=== PATIENT | female | born 1995 ===

== ENCOUNTER 2017-07-05 03:45 | Inpatient (IN) ==
[2017-07-05 04:23] LABS: Bacteria,Urine Occasional /HPF (Few); Blood, Urine NEGATIVE (Negative); Glucose,Urine (UA) Negative (Negative); Ketones,Urine Negative (Negative); Mucus,Urine Few /LPF (Occasional); Nitrite,Urine Negative (Negative); Protein,Urine 30 MG/DL; RBC,Urine 1 /HPF (0-4); Squamous Epithelial Cell,Urine Occasional /HPF (0-10); Urine Color Yellow (Yellow); Urine Specific Gravity 1.025 (1.001-1.035); WBC,Urine 5 /HPF (0-6)
[2017-07-05 04:25] LABS: Apearance,Urine Clear (Clear); Bilirubin,Urine Moderate mg/dL (Negative)
[2017-07-05] MEDS ORDERED: ONDANSETRON 4 MG/2 ML VIAL IV PRN (07:27)
[2017-07-05] MEDS ORDERED: MEPERIDINE 50 MG/1 ML VIAL IV PRN (07:27)
[2017-07-05] MEDS ORDERED: LACTATED RINGERS 1,000 ML IV SCH (07:30)
[2017-07-05 07:44] LABS: Basophils % 0.1 % (0.0-0.8); Eosinophils % 0.4 % (0.00-10.9); Hemoglobin 12.8 GM/DL (12.0-16.0); Immature Granulocytes % 0.3 %; Immature Granulocytes Absolute 0.02 #; Lymphocytes # 1.6 10*3/uL (1.4-4.0); Lymphocytes % 21.4 % (21.3-54.2); Mean Corpuscular HGB Conc 34.6 GM/DL (32-36); Mean Corpuscular Hemoglobin 31 PG (27-34); Mean Corpuscular Volume 90.9 FL (87-102); Mean Platelet Volume 11.2 FL (9.6-12.0); Monocytes # 0.5 10*3/uL (0.11-0.8); Monocytes % 6.3 % (1.7-12.7); Neutrophils # 5.2 10*3/uL (1.4-7.4); Neutrophils % 71.5 % (38.7-73.9); Platelet Count 208 T/CUMM (130-400); Red Blood Count 4.07 MC/CUMM (3.8-5.5); Red Cell Distribution Width 12.8 % (9.3-17.3); White Blood Count 7.3 T/CUMM (4-12)
[2017-07-05 08:35] LABS: Albumin 2.7 G/DL (3.4-5.0); Bilirubin,Total 0.7 MG/DL (0.2-1.0); Calcium 8.2 MG/DL (8.5-10.1); Osmolality,Calculated 275.5 MOS/KG (273-304); Potassium 3.7 MMOL/L (3.5-5.1); Uric Acid 4.7 MG/DL (2.6-6.0)
[2017-07-05] MEDS ORDERED: OXYTOCIN/LR 20 UNIT/1,000 ML BAG IV ONE ×2 (09:20→15:00)
[2017-07-05] MEDS ORDERED: OXYTOCIN/LR 20 UNIT/1,000 ML BAG IV SCH (09:30)
--- NOTE | 2017-07-05 10:02 | OB/GYN History & Physical ---
History of Present Illness Chief complaint: Presented for complaints of uterine contractions and in active labor. History of present illness: Ms. Liang is a 21 year old female who is a 2 para 1 living 1. Her ABNER is 07/14/2017 for estimated gestational age of 38 weeks and 5 days. The patient presented to the labor department in active labor. Upon arrival she was examined by the nurse and her cervix was 5-6 cm dilated. In light of these findings patient is admitted for management of active labor. The risks and benefits were thoroughly discussed with this patient and her significant other, all parties were in agreement with plan of care. The patient received her care through the [facility] in my office. She received routine care and her course was uneventful. labs: She is O+, rubella is immune, RPR is nonreactive, hepatitis B negative, HIV negative, the patient was treated for chlamydia during this test of cure was negative. GBS culture negative. Review of systems is negative with exception of active labor at 38 weeks and 5 days. The patient has had 1 previous vaginal delivery and that weighed 7 pounds and 2 ounces and she reported no complications with that . Home Medications Medication Instructions Recorded Confirmed Type Pnv No.95/Ferrous Fum/Folic AC 1 tablet PO BEDTIME 06/26/17 07/05/17 History [ Tablet] Allergies Allergy/AdvReac Type Severity Reaction Status Date / Time No Known Allergies Allergy Verified 06/26/17 15:27 12 point system: reviewed and no additional remarkable complaints except as stated Medical,Surgical,& Family Hx - Medical History Medical History: noncontributory Reproductive: No history of: Ectopic , Complication - Surgical History Surgical History: noncontributory Reproductive Surgeries: Patient denies;: Section - Family History Family History: Reports;: Family Diabetes (GGM), Family Hypertension (GGM) Denies;: Family Anesthesia Reaction, Family Cancer, Family Heart Disease, Family Hematology, Family Psychiatric Problems, Family Stroke, Additional Family History - Social History Smoking Status: Never smoker Frequency of Alcohol Use: None Type of Drug Use: None Marital Status: Single Lives With:: Significant Other Functional capacity: independent ambulation Exam KITCHEN CLEANER - Constitutional Vitals: Vital Signs Temp Pulse Resp BP Pulse Ox 07/05/17 04:00 97.1 F L 53 L 17 114/58 99 General appearance: mild distress - Antepartum / Post Antepartum Exam Cervix - Dilatation: 5-6 cm Results - Labs CBC & BMP: 07/05/17 07:34 07/05/17 07:34
--- NOTE | 2017-07-05 11:33 | Event Note ---
HPI: Ms. Liang presented to the labor department in active labor. The risk and benefits were thoroughly discussed with this patient and significant other and plan of care was discussed with Dr. Soto and all parties were in agreement plan. Stage I: The patient was admitted she received IV fluids and IV Pitocin per protocol. Artificial rupture membranes was performed clear fluid noted. An IUPC catheter was inserted for monitoring of contractions. The patient progressed in labor with a CAT 1 tracing. She received IV pain meds for pain control. She had an uneventful course of labor. States Stage II: She was complete and complained of pressure and strong desire to push. She pushed approximately 2 times after which time the infant's head was delivered, a nuchal cord 1 was noted and reduced. The mouth and nose were suctioned on the perineum. The remainder the infant was delivered at 1124 a viable male was noted. Apgars were 9 at 1 minute and 9 at 5 minutes. weight was 5 pounds and 10 ounces. A cord pH was obtained and sent to the lab. The infant was placed on the mom's abdomen for skin to skin bonding. Stage III: A spontaneous delivery of a Leo placenta with a three-vessel cord noted. The placenta was further examined and appeared to be grossly intact. The vagina cervix inspected with a superficial laceration noted on the perineum which was hemostatic and not in need of repair. Estimated blood loss was approximately 150 cc. At the time of dictation mother and baby are both in stable condition.
[2017-07-05] MEDS ORDERED: ACETAMINOPHEN/CODEINE 300-30 MG TABLET PO PRN (11:35)
[2017-07-05] MEDS ORDERED: ACETAMINOPHEN 325 MG TABLET PO PRN (14:33)
[2017-07-05] MEDS ORDERED: RHO(D) IMMUNE GLOBULIN 300 MCG SYRINGE IM ONE (14:33)
[2017-07-05] MEDS ORDERED: oxyCODONE/ACETAMINOPHEN 5-325 MG TABLET PO PRN ×2 (14:33)
[2017-07-05] MEDS ORDERED: DIPH/TET/ACEL PERT BOOSTER VACCINE 0.5 ML VIAL IM ONE (14:33)
[2017-07-05] MEDS ORDERED: WITCH HAZEL PADS 100/JAR TOP PRN (14:33)
[2017-07-05] MEDS ORDERED: LANOLIN 50% CREAM 0.3 OZ TUBE TOP PRN (14:33)
[2017-07-05] MEDS ORDERED: BENZOCAINE 20%/MENTHOL 0.5% SPRAY 56 GM CAN TOP PRN (14:33)
[2017-07-05] MEDS ORDERED: MEASLES/MUMPS/RUBELLA VACCINE 0.5 ML VIAL SUBCUT ONE (14:33)
[2017-07-05] MEDS ORDERED: HYDROCORTISONE 2.5% RECTAL CREAM 30 GM TUBE TOP PRN (14:33)
[2017-07-05] MEDS ORDERED: BISACODYL 10 MG SUPP RECTAL PRN (14:33)
[2017-07-05] MEDS ORDERED: OXYTOCIN 10 UNIT/ML VIAL ONE (14:50)
[2017-07-05] MEDS: IBUPROFEN 800 MG TABLET PO PRN (15:02)
[2017-07-05] MEDS: DOCUSATE SODIUM 100 MG CAPSULE PO SCH (21:20)
[2017-07-06 07:21] LABS: Basophils % 0.3 % (0.0-0.8); Eosinophils % 0.4 % (0.00-10.9); Hemoglobin 12.9 GM/DL (12.0-16.0); Immature Granulocytes % 0.5 %; Immature Granulocytes Absolute 0.04 #; Lymphocytes # 1.8 10*3/uL (1.4-4.0); Lymphocytes % 23.8 % (21.3-54.2); Mean Corpuscular HGB Conc 34.9 GM/DL (32-36); Mean Corpuscular Hemoglobin 31 PG (27-34); Monocytes # 0.4 10*3/uL (0.11-0.8); Monocytes % 5.4 % (1.7-12.7); Neutrophils # 5.2 10*3/uL (1.4-7.4); Neutrophils % 69.6 % (38.7-73.9); Platelet Count 202 T/CUMM (130-400); Red Blood Count 4.11 MC/CUMM (3.8-5.5); White Blood Count 7.4 T/CUMM (4-12)
[2017-07-06] MEDS: DOCUSATE SODIUM 100 MG CAPSULE PO SCH ×2 (08:31→20:45)
--- NOTE | 2017-07-06 10:07 | OB/GYN Progress Note ---
Assessment and Plan (1) 39 weeks gestation of Status: Acute Current Visit: Yes (2) Vaginal delivery Status: Acute Assessment and plan: Initiate routine orders. Current Visit: Yes MOLD BURNER - PN: Subj Interval history: Stable with no complaints. Bonding well with . Exam MOLD BURNER - Constitutional Vitals: Vital Signs Temp Pulse Resp BP Pulse Ox 07/06/17 07:43 97 F L 50 L 18 107/62 98 07/06/17 04:00 97.2 F L 46 L 18 135/61 97 07/05/17 23:40 97.2 F L 51 L 16 117/62 96 07/05/17 19:50 97.5 F L 59 L 18 116/81 99 07/05/17 14:50 96.8 F L 46 L 19 135/75 98 General appearance: no acute distress - Antepartum / Post Post Exam Breast: bilateral: normal Abdomen obstetrics: Present: bowel sounds normal Vagina: Present: normal moisture, discharge (Light lochia rubra) Uterus exam: Present: enlarged (FF ML) Anus/Rectum: Present: normal perianal skin - Respiratory Respiratory exam: Present: clear to auscultation bilaterally - Cardiovascular Cardiovascular exam: Present: regular rate and rhythm - GI/Abdominal GI/Abdominal exam: Present: normal bowel sounds, soft - Neurological Exam Neurological exam: Present: alert, oriented X3 - Psychiatric Psychiatric exam: Present: normal affect, normal mood - Skin Skin exam: Present: normal color, warm Results - Labs CBC & BMP: 07/06/17 06:58 07/05/17 07:34
[2017-07-06] MEDS: IBUPROFEN 800 MG TABLET PO PRN (18:28)
[2017-07-07 07:55] VITALS: BP 115/71
[2017-07-07] MEDS: DOCUSATE SODIUM 100 MG CAPSULE PO SCH (08:57)
--- NOTE | 2017-07-07 11:36 | Discharge Summary ---
Hospital Course - Hospital Course Hospital Course: Ms. Liang presented to labor department for elective induction of labor due to term . She subsequently delivered a viable with no complications. She has followed a normal course and she is doing well. Her bleeding is minimal with no odor. Her perineum is intact with no edema. Her vital signs and lab values are stable. She is bonding well with her infant. Contraception options has been discussed with this patient she is unsure of a method at this time. She will be discharged home prescriptions for pain and follow-up appointment in our office. Diagnosis - Discharge Diagnosis (1) 39 weeks gestation of Status: Acute (2) Vaginal delivery Status: Acute Specialty Discharge - Follow Up or Referrals Follow up with: Shannan Soto MD [Physician] - 08/17/17 10:30 am Discharge Plan - Discharge Data Disposition: Disch To Home/Self Care Condition at Discharge: Stable Discharge Diet: advance to your usual diet, regular diet Activity: resume usual activities as tolerated Hygiene: no restrictions Weight Bearing at Discharge: full weight bearing Driving: no restrictions Contact your physician if you experience:: fever over 101, pain uncontrolled by pain medications - Discharge Medications No Action Pnv No.95/Ferrous Fum/Folic AC [ Tablet] 1 tablet PO BEDTIME - Follow Up or Referral Follow Up: Shannan Soto MD [Physician] - 08/17/17 10:30 am - Forms/Instructions Instructions: Perineal Care (DC), Vaginal Delivery (DC), Bleeding (DC) Exam - Constitutional Vitals: Period Temp Pulse Resp BP Sys/Blue Pulse Ox Last 24 Hr 97.3 F-97.9 F 47-58 16-20 115-127/67-77 96-98 General appearance: no acute distress - Head Head exam: Present: normal inspection - Respiratory Respiratory exam: Present: clear to auscultation bilaterally - Cardiovascular Cardiovascular exam: Present: regular rate and rhythm - GI/Abdominal GI/Abdominal exam: Present: normal bowel sounds, soft - Extremities Exam Extremities exam: Present: normal inspection - Neurological Exam Neurological exam: Present: alert, oriented X3 - Psychiatric Psychiatric exam: Present: normal affect, normal mood - Skin Skin exam: Present: normal color, warm DS: Provider Date of admission: 07/05/17 07:27 Primary care physician: Lamont Tejeda MD Attending physician on admission: Shannan Soto MD Consults: 07/05/17 07:27 Consult to Anesthesiology [CONS] Routine Consulting Provider: Reason for Anesthesiology: Epidural Consult Comment: Epidural for pain managment 07/05/17 14:33 Consult to Skin Washer [CONS] Routine Consult Skin Washer: Breast Feeding Discharging clinician: Batsheva White CNM Expected date of discharge: 07/07/17
== END 2017-07-07 15:00 | disposition home or self-care (01) | DRG 560 ==
LOC: N.LDOUT 03:45 → N.LD 03:48 → N.OB 14:34
PROVIDERS: ADMIT Obstetrics & Gynecology; ATTEND Obstetrics & Gynecology

== ENCOUNTER 2021-01-24 06:07 | Inpatient (IN) ==
[2021-01-24] MEDS ORDERED: OXYTOCIN/LR 20 UNIT/1,000 ML BAG IV ONE ×2 (06:10→07:35)
[2021-01-24] MEDS ORDERED: TRANEXAMIC ACID 1,000 MG/10 ML VIAL ONE (06:10)
[2021-01-24] MEDS ORDERED: METHYLERGONOVINE 0.2 MG/1 ML AMP ONE (06:10)
[2021-01-24] MEDS ORDERED: miSOPROStoL 200 MCG TABLET ONE (06:10)
[2021-01-24] MEDS ORDERED: CARBOPROST TROMETHAMINE 250 MCG/ML AMP IM ONE (06:11)
[2021-01-24] MEDS ORDERED: ONDANSETRON 4 MG/2 ML VIAL IV PRN ×2 (06:15→07:35)
[2021-01-24] MEDS ORDERED: MEPERIDINE 50 MG/1 ML VIAL IV PRN (06:15)
[2021-01-24] MEDS ORDERED: BUTORPHANOL 2 MG/ML VIAL IV PRN (06:15)
[2021-01-24] MEDS ORDERED: oxyCODONE/ACETAMINOPHEN 5-325 MG TABLET PO PRN ×3 (06:15→07:35)
[2021-01-24 06:26] LABS: Basophils % 0.5 % (0.0-0.8); Eosinophils # 0.2 10*3/uL (0.0-0.87); Eosinophils % 1.8 % (0.00-10.9); Hematocrit 41.2 VOL% (35.7-47.0); Hemoglobin 13.2 GM/DL (12.0-16.0); Immature Granulocytes Absolute 0.08 #; Lymphocytes % 36.1 % (21.3-54.2); Mean Corpuscular Volume 91.4 FL (87-102); Mean Platelet Volume 11.8 FL (9.6-12.0); Monocytes % 6.7 % (1.7-12.7); Neutrophils % 53.9 % (38.7-73.9); Platelet Count 206 T/CUMM (130-400); Red Blood Count 4.51 MC/CUMM (3.8-5.5); Red Cell Distribution Width 14.5 % (9.3-17.3); White Blood Count 8.2 T/CUMM (4-12)
[2021-01-24] MEDS ORDERED: LACTATED RINGERS 1,000 ML IV SCH (06:30)
[2021-01-24] MEDS ORDERED: OXYTOCIN/LR 20 UNIT/1,000 ML BAG IV SCH (06:30)
[2021-01-24 06:45] LABS: Cord Arterial Blood HCO3 20.4 MMOL/L
[2021-01-24 06:47] LABS: Cord Venous Blood HCO3 20.7 MMOL/L; Cord Venous Blood PCO2 34.5 MMHG; Cord Venous Blood PO2 31.5
[2021-01-24] MEDS ORDERED: ACETAMINOPHEN 325 MG TABLET PO PRN (07:35)
[2021-01-24] MEDS ORDERED: WITCH HAZEL PADS 100/JAR TOP PRN (07:35)
[2021-01-24] MEDS ORDERED: RHO(D) IMMUNE GLOBULIN 300 MCG SYRINGE IM ONE (07:35)
[2021-01-24] MEDS ORDERED: MEASLES/MUMPS/RUBELLA VACCINE 0.5 ML VIAL SUBCUT ONE (07:35)
[2021-01-24] MEDS ORDERED: BISACODYL 10 MG SUPP RECTAL PRN (07:35)
[2021-01-24] MEDS ORDERED: BENZOCAINE 20%/MENTHOL 0.5% SPRAY 56 GM CAN TOP PRN (07:35)
[2021-01-24] MEDS ORDERED: DIPH/TET/ACEL PERT BOOSTER VACCINE 0.5 ML VIAL IM ONE (07:35)
[2021-01-24] MEDS ORDERED: HYDROCORTISONE 2.5% RECTAL CREAM 30 GM TUBE TOP PRN (07:35)
[2021-01-24] MEDS ORDERED: LANOLIN 50% CREAM 0.3 OZ TUBE TOP PRN (07:35)
[2021-01-24] MEDS: IBUPROFEN 800 MG TABLET PO PRN (16:52)
[2021-01-24] MEDS: DOCUSATE SODIUM 100 MG CAPSULE PO SCH ×2 (19:04→21:24)
[2021-01-25] MEDS: IBUPROFEN 800 MG TABLET PO PRN ×2 (01:04→12:21)
[2021-01-25 05:20] LABS: Basophils % 0.3 % (0.0-0.8); Eosinophils # 0.2 10*3/uL (0.0-0.87); Eosinophils % 2.7 % (0.00-10.9); Hematocrit 34.1 VOL% (35.7-47.0); Hemoglobin 11.3 GM/DL (12.0-16.0); Immature Granulocytes % 1.2 %; Immature Granulocytes Absolute 0.11 #; Lymphocytes % 33.1 % (21.3-54.2); Mean Corpuscular HGB Conc 33.1 GM/DL (32-36); Mean Platelet Volume 11.7 FL (9.6-12.0); Monocytes % 7.2 % (1.7-12.7); Neutrophils % 55.5 % (38.7-73.9); Platelet Count 174 T/CUMM (130-400); Red Blood Count 3.79 MC/CUMM (3.8-5.5); Red Cell Distribution Width 14.6 % (9.3-17.3); White Blood Count 8.9 T/CUMM (4-12)
[2021-01-25 05:40] LABS: Hypochromasia Slight; Microcytosis 1+; Platelet Estimate Adequate
[2021-01-25] MEDS: DOCUSATE SODIUM 100 MG CAPSULE PO SCH ×2 (08:54→21:10)
[2021-01-26] MEDS: IBUPROFEN 800 MG TABLET PO PRN (03:34)
[2021-01-26] MEDS: DOCUSATE SODIUM 100 MG CAPSULE PO SCH (09:05)
[2021-01-26 14:03] VITALS: BP 122/68
== END 2021-01-26 15:00 | disposition home or self-care (01) | DRG 807 ==
LOC: N.LDOUT 06:07 → N.LD 06:09 → N.OB 09:38
PROVIDERS: ADMIT Obstetrics & Gynecology; ATTEND Obstetrics & Gynecology